=== PATIENT | male | born 1940 | race Caucasian/White ===

== ENCOUNTER → 2025-05-29 | Outpatient (REF) | payer MEDICARE, OTHER ==
[~2025-05-29] MED LIST: FUROSEMIDE INJ 10 MG/ML 4 ML VIAL ONE
== END ==
LOC: NM 10:19
PROVIDERS: ATTEND Urology
DX: N13.5 Crossing vessel and stricture of ureter without hydronephrosis (principal)
CPT/HCPCS: 78708; A9562; J1938